=== PATIENT | female | born 1985 ===

== ENCOUNTER 2024-04-26 10:12 | Emergency (ER) | payer BC ==
[2024-04-26] MEDS: Acetaminophen 500 MG Tab PO ONE (10:44)
[2024-04-26] MEDS: Ibuprofen 600 MG Tab PO ONE (10:44)
[2024-04-26 11:13] LABS: CORONAVIRUS COVID-19 NAA POSITIVE (NEGATIVE); INFLUENZA A NAA NEGATIVE (NEGATIVE); INFLUENZA B NAA NEGATIVE (NEGATIVE); RESPIRATORY SYNCYTIAL VIR NAA NEGATIVE (NEGATIVE)
[2024-04-26] MEDS: Nirmatrelvir/Ritonavir 300 MG/100 MG Dosepak PO STA (12:01)
== END 2024-04-26 12:06 | disposition home or self-care (01) ==
LOC: MERGE 10:12 → MW.ED 10:12
DX: U07.1 COVID-19 (principal); Z75.8 Other problems related to medical facilities and other health care
CPT/HCPCS: 0241U; 87651; 99283; A9270; 99284